=== PATIENT | female | born 1990 | race African-American/Black ===

== ENCOUNTER 2024-08-04 14:07 | Emergency (ER) | payer MEDICAID ==
[~2024-08-04] VITALS: Ht 157.5 cm; Wt 113.0 kg
[2024-08-04 14:12] VITALS: O2SAT 99
[2024-08-04 14:14] VITALS: BP 133/89; PULSE 74; RESP 18; TEMP 97.6; O2SAT 99
[2024-08-04 14:46] LABS: BASOPHILS % 0.9 % (0.0-2.0); EOSINOPHILS % 1.2 % (0.0-5.0); HEMATOCRIT. 34.9 % (36.0-48.0); HEMOGLOBIN. 11.6 g/dL (12.0-16.0); LYMPHOCYTES % 31.4 % (20.0-50.0); MEAN CORPUSCULAR HEMOGLOBIN 28.7 pg (28.0-32.0); MEAN CORPUSCULAR HGB CONC 33.3 g/dL (31.0-37.0); MEAN CORPUSCULAR VOLUME 86.1 fL (81.0-99.0); MONOCYTES % 5.4 % (2.0-8.0); NEUTROPHILS % 61.1 % (40.0-76.0); PLATELET 288 x1000/uL (130-400); RED BLOOD CELL COUNT 4.05 mill/uL (4.2-5.4); WHITE BLOOD COUNT 10.6 x1000/uL (4.5-11.0)
[2024-08-04 14:51] LABS: CHLORIDE 108 mEq/L (98-107); POTASSIUM 4.1 mEq/L (3.5-5.1); SODIUM 139 mEq/L (136-145)
[2024-08-04 14:52] LABS: CARBON DIOXIDE 28 mEq/L (21-32)
[2024-08-04 14:53] LABS: CALCIUM 8.9 mg/dL (8.7-10.4)
[2024-08-04 14:57] LABS: CREATININE 1.1 mg/dL (0.6-1.0); GLUCOSE 88 mg/dL (70-105); UREA NITROGEN BLOOD 12 mg/dL (9-23)
[2024-08-04 15:14] LABS: ALANINE AMINOTRANSFERASE 8 IU/L (10-49); ALBUMIN 4.3 g/dL (3.2-4.8); ASPARTATE AMINOTRANSFERASE 15 IU/L (<34); BILIRUBIN DIRECT < 0.1 mg/dL (<=3.0); BILIRUBIN TOTAL 0.2 mg/dL (0.1-1.0); PROTEIN TOTAL 7.4 g/dL (6.0-8.3)
[2024-08-04 15:17] LABS: B-HCG QUANTITATIVE < 1 mIU/mL (<3)
[2024-08-04] MEDS ORDERED: IBUP-2029 MT (15:25)
== END 2024-08-04 15:45 | disposition home or self-care (01) ==
LOC: ER 14:26
DX: N93.9 Abnormal uterine and vaginal bleeding, unspecified (principal)
CPT/HCPCS: 36415; 80048; 80076; 84702; 85025; 86850; 86900; 99283